=== PATIENT | female | born 1955 | race Caucasian/White ===

== ENCOUNTER 2017-11-11 20:44 | Outpatient (CLI) | payer MEDICAID | END 2017-11-11 20:45 | disposition critical access hospital (66) | LOC: EMS 20:44 | PROVIDERS: ATTEND Surgery | DX: R41.0 Disorientation, unspecified (principal); R10.9 Unspecified abdominal pain | CPT/HCPCS: A0425; A0427 ==

== ENCOUNTER 2017-11-11 21:17 | Emergency (ER) | payer MEDICAID ==
[2017-11-11 21:45] LABS: BASOPHILS # (AUTO) 0.2 10^3/uL (0.0-0.1); BASOPHILS % (AUTO) 0.8 %; HGB - HEMOGLOBIN 12.7 g/dL (12.0-16.0); LYMPHOCYTES % (AUTO) 7.6 %; MEAN CORPUSCULAR HEMOGLOBIN 33.1 pg (27.0-31.0); MEAN CORPUSCULAR HGB CONC 32.6 g/dL (32.0-36.0); MEAN CORPUSCULAR VOLUME 101.4 fL (81.0-99.0); MEAN PLATELET VOLUME 7.6 fL (7.9-10.8); MONOCYTES % (AUTO) 7.6 %; NEUTROPHILS # (AUTO) 21.6 10^3/uL (1.5-6.6); PLT - PLATELET COUNT 548 10^3/uL (130-450); RED BLOOD COUNT 3.85 10^6/uL (4.20-5.40); RED CELL DISTRIBUTION WIDTH 14.4 % (12.0-15.0); WHITE BLOOD COUNT 25.8 x10^3/uL (4.8-10.8)
--- NOTE | 2017-11-11 21:47 | ED Physician Documentation ---
PD HPI ABD PAIN - Stated complaint Stated Complaint: ABD PAIN, SOA, ASCITES - Chief complaint Chief Complaint: Abd Pain - History obtained from History obtained from: Patient, EMS - History of Present Illness Timing - onset: How many weeks ago (1) Timing - details: Gradual onset, Still present Quality: Cramping, Fullness/distended Location: All over / everywhere Worsened by: Eating, Breathing, Position Associated symptoms: Loss of appetite, Weight loss. No: Fever, Nausea, Vomiting Similar symptoms before: Has not had sx before Recently seen: Not recently seen - Additional information Additional information: Patient is a 62 year old female with no known significant past medical history who is presenting to the emergency department for abdominal pain and distention. according to patient and ems the symptoms have been going on for the last few weeks. Patient states that her abdomen has become more distended and now it is giving her trouble breathing. Patient denies any history of alcohol abuse or IVDA. Patient denies nausea, vomiting, fever or chills. Review of Systems Constitutional: denies: Fever, Chills Eyes: reports: Reviewed and negative Nose: reports: Reviewed and negative Throat: reports: Reviewed and negative Respiratory: reports: Dyspnea GI: reports: Abdominal Pain, Abdominal Swelling. 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 - Present Medications Home Medications: Ambulatory Orders Medication Instructions Recorded Confirmed Atenolol 0 mg PO DAILY 05/08/14 05/08/14 Carisoprodol [Soma] 0 mg PO QID 05/08/14 05/08/14 Clonidine HCl [Clonidine HCl ER] 0 mg PO BID 05/08/14 05/08/14 Penicillin Vk 500 mg PO Q6H 10 Days tablet 04/22/15 clonazePAM [Klonopin] 0.5 mg PO Q8H PRN #7 tablet 04/22/15 Carisoprodol [Soma] 250 mg PO QID 11/11/17 11/11/17 HYDROcod/ACETAM 5/325 [[place] 5/325] 1 - 2 tab PO PRN PRN 11/11/17 11/11/17 clonazePAM [Clonazepam] 0.5 mg PO Q8H 11/11/17 11/11/17 - Allergies Allergies/Adverse Reactions: Allergies Allergy/AdvReac Type Severity Reaction Status Date / Time adalimumab [From Humira] Allergy Intermediate Unknown Verified 11/11/17 22:55 Iodinated Contrast- Oral and Allergy Intermediate Unknown Verified 11/11/17 22: 55 IV Dye [Iodinated Contrast Media - IV Dye] tetracycline [Tetracycline] Allergy Intermediate Unknown Verified 11/11/17 22:55 - Social History Does the pt smoke?: Yes Smoking Status: Current every day smoker Does the pt drink ETOH?: Yes Does the pt have substance abuse?: No - Immunizations Immunizations are current?: No Immunizations: TDAP >10years/unknown - POLST Patient has POLST: No PD ED PE NORMAL - General General: Alert and oriented X 3 - HEENT HEENT: Atraumatic - Neck Neck: No JVD - Respiratory Respiratory: Clear bilaterally - Derm Derm: Normal color - Extremities Extremities: No deformity - Neuro Neuro: Alert and oriented X 3, No motor deficit Eye Opening: Spontaneous PD ED PE EXPANDED - General General: Alert, In Pain - HEENT HEENT: Dry mucous membranes, Dental decay - Cardiac Cardiac: Tachy - Abdomen Abdomen: Distended, Tender to palpation, Other (tympanic to percussion) Results - Vitals Vitals: Vital Signs - 24 hr 11/11/17 11/11/17 21:18 23:17 Temperature 36.1 C L Heart Rate 118 H 108 H Respiratory 22 16 Rate Blood Pressure 141/67 H 119/67 O2 Saturation 97 96 Oxygen O2 Source Room air - Labs Labs: Microbiology 11/11/17 22:45 Body Fluid Culture - Preliminary Ascities Fluid Laboratory Tests 11/11/17 11/11/17 11/11/17 21:39 21:39 21:39 WBC 25.8 H RBC 3.85 L Hgb 12.7 Hct 39.0 MCV 101.4 H MCH 33.1 H MCHC 32.6 RDW 14.4 Plt Count 548 H MPV 7.6 L Neut # 21.6 H Lymph # 2.0 [place] # 2.0 H Eos # 0.0 Baso # 0.2 H Absolute Nucleated RBC 0.01 Band Neuts % (Manual) Not Reportable Abnorm Lymph % (Manual) Not Reportable Nucleated RBC % 0.0 Neutrophils # (Manual) Not Reportable Lymphocytes # (Manual) Not Reportable Monocytes # (Manual) Not Reportable Eosinophils # (Manual) Not Reportable Basophils # (Manual) Not Reportable Differential Comment MANUAL=AUTO DIFF Manual Slide Review Indicated Platelet Estimate NORMAL (130-450,000) Platelet Morphology NORMAL APPEARANCE RBC Morph Micro Appear NORMAL APPEARANCE PT 14.3 H INR 1.3 H APTT 27.6 Sodium 127 L Potassium 3.2 L Chloride 89 L Carbon Dioxide 25 Anion Gap 13.0 BUN 6 Creatinine 0.5 Estimated GFR (MDRD) 125 Glucose 123 H Lactic Acid Calcium 8.4 L Total Bilirubin 1.7 H AST 174 H ALT 34 Alkaline Phosphatase 264 H Lactate Dehydrogenase B-Natriuretic Peptide Total Protein 6.7 Albumin 3.0 L Globulin 3.7 Albumin/Globulin Ratio 0.8 L Lipase 19 L Fluid Source Fluid Color Fluid Clarity Fluid WBC Fluid RBC Fluid Neutrophils % Fluid Lymphocytes % Fluid Macrophages % Fld Mesothelial Cell % 11/11/17 11/11/17 11/11/17 21:39 21:39 21:39 WBC RBC Hgb Hct MCV MCH MCHC RDW Plt Count MPV Neut # Lymph # [place] # Eos # Baso # Absolute Nucleated RBC Band Neuts % (Manual) Abnorm Lymph % (Manual) Nucleated RBC % Neutrophils # (Manual) Lymphocytes # (Manual) Monocytes # (Manual) Eosinophils # (Manual) Basophils # (Manual) Differential Comment Manual Slide Review Platelet Estimate Platelet Morphology RBC Morph Micro Appear PT INR APTT Sodium Potassium Chloride Carbon Dioxide Anion Gap BUN Creatinine Estimated GFR (MDRD) Glucose Lactic Acid 3.4 H* Calcium Total Bilirubin AST ALT Alkaline Phosphatase Lactate Dehydrogenase 188 B-Natriuretic Peptide 70 Total Protein Albumin Globulin Albumin/Globulin Ratio Lipase Fluid Source Fluid Color Fluid Clarity Fluid WBC Fluid RBC Fluid Neutrophils % Fluid Lymphocytes % Fluid Macrophages % Fld Mesothelial Cell % 11/11/17 22:45 WBC RBC Hgb Hct MCV MCH MCHC RDW Plt Count MPV Neut # Lymph # [place] # Eos # Baso # Absolute Nucleated RBC Band Neuts % (Manual) Abnorm Lymph % (Manual) Nucleated RBC % Neutrophils # (Manual) Lymphocytes # (Manual) Monocytes # (Manual) Eosinophils # (Manual) Basophils # (Manual) Differential Comment Manual Slide Review Platelet Estimate Platelet Morphology RBC Morph Micro Appear PT INR APTT Sodium Potassium Chloride Carbon Dioxide Anion Gap BUN Creatinine Estimated GFR (MDRD) Glucose Lactic Acid Calcium Total Bilirubin AST ALT Alkaline Phosphatase Lactate Dehydrogenase B-Natriuretic Peptide Total Protein Albumin Globulin Albumin/Globulin Ratio Lipase Fluid Source PERITONEAL Fluid Color YELLOW Fluid Clarity CLEAR Fluid WBC 139 Fluid RBC 316 Fluid Neutrophils % 13.0 Fluid Lymphocytes % 19.0 Fluid Macrophages % 50.0 Fld Mesothelial Cell % 18.0 - Rads (name of study) ct abdomen and pelvis Radiology: Final report received (large amount of ascites, infiltration of the liver), EMP read contemporaneously Procedures - Paracentesis Preparation: Consent obtained, Ultrasound guidance, Sterile prep and drape, Local anesthesia Location: RLQ Technique: Catheter over needle Fluid: Clear, Sent for cell count, Sent for gram stain, Sent for culture, Sent for albumin, Sent for glucose, Sent for protein, Sent for LDH, Sent for amylase , Volume - enter cc (1500), Sent for cytology Aftercare: No complications, Patient tolerated well, Dressing applied PD MEDICAL DECISION MAKING - ED course Complexity details: reviewed old records, reviewed results, re-evaluated patient , considered differential, d/w patient, d/w business solutions consultant ED course: patient was seen and examined at bedside. IV access was gained and labs were drawn. Imaging was ordered. When patient returned from imaging Patient was treated with morphine and ativan. paracentesis was performed. 1.5 liters were removed. Patient was found to have a leukocytosis and was empirically started on cefotaxime. There were no inpatient beds available in the hospital so case was discussed with [place] hospitalist Dr. Carlson who accepted the patient. Arrangements were made for transfer. Patient was treated with additional morphine for pain. Patient was transferred in stable condition. Departure - Departure Disposition: 02 Transfer Acute Care Hosp Clinical Impression: Ascites Condition: Stable
[2017-11-11 21:50] LABS: INR 1.3 (0.8-1.2); PT - PROTHROMBIN TIME 14.3 secs (9.9-12.6)
[2017-11-11] MEDS ORDERED: MORPHINE 10 MG/ML VIAL IVP STA ×2 (21:56→23:30)
[2017-11-11 21:57] LABS: ALBUMIN/GLOBULIN RATIO 0.8 (1.0-2.2); BILIRUBIN,TOTAL 1.7 mg/dL (0.2-1.0); CALCIUM 8.4 mg/dL (8.5-10.3); CREATININE 0.5 mg/dL (0.4-1.0); TOTAL PROTEIN 6.7 g/dL (6.7-8.2)
[2017-11-11 22:05] LABS: PLATELET ESTIMATE, MANUAL NORMAL (130-450,000) (NORMAL); PLATELET MORPHOLOGY NORMAL APPEARANCE (NORMAL); RBC MORPHOLOGY (MULTIPLE) NORMAL APPEARANCE (NORMAL)
[2017-11-11 22:06] LABS: DIFFERENTIAL COMMENT MANUAL=AUTO DIFF
[2017-11-11] MEDS ORDERED: SODIUM CHLORIDE 0.9% 1,000 ML IV ONE (22:08)
[2017-11-11] MEDS ORDERED: LORazepam 2 MG/ML VIAL IVP STA (22:08)
--- NOTE | 2017-11-11 22:35 | CT Preliminary Report ---
Exam: CT ABDOMEN/PELVIS W/O IMPRESSION: 1. Small bilateral pleural effusions and mild bibasilar lung consolidation suspect atelectasis. 2. There appears to be geographic fatty infiltration of the liver in the right hepatic lobe. Infiltra tive liver mass seems less likely but not excluded. An MRI of the liver could further evaluate. Mild lobular contour. 3. Moderate to large amount of ascites in the abdomen and pelvis. See above. [facility] SITE ID: [id number]
--- NOTE | 2017-11-11 22:42 | CT Report ---
EXAM: CT ABDOMEN AND PELVIS EXAM DATE: 11/11/2017 10:08 PM. CLINICAL HISTORY: Abdominal distention and weight loss. COMPARISONS: None. TECHNIQUE: Routine helical CT imaging was performed through the abdomen and pelvis. IV contrast: No. Enteric contrast: No. Reconstructions: Coronal and sagittal. In accordance with CT protocol optimization, one or more of the following dose reduction techniques w ere utilized for this exam: automated exposure control, adjustment of mA and/or KV based on patient s ize, or use of iterative reconstructive technique. FINDINGS: Lung Bases: Small bilateral pleural effusions and mild bibasilar lung consolidation, suspect atelecta sis. There appears to be geographic fatty infiltration of the liver in the right hepatic lobe. Infiltrativ e liver mass seems less likely but not excluded. An MRI of the liver could further evaluate. Mild lob ular contour. Gallbladder: The gallbladder evaluation is limited since the adjacent ascites obscures the wall of th e gallbladder. Bile Ducts: Unremarkable. Pancreas: Unremarkable. Spleen: Unremarkable. Adrenals: Unremarkable. Kidneys: Unremarkable. Bowel: Small hiatal hernia. No evidence for bowel obstruction. Moderate to large amount of ascites in the abdomen and pelvis. Pelvis: Bladder is decompressed. Uterus is atrophic. Vascular Structures: No acute findings. Bones: No acute bone findings. Moderate dextroscoliosis in the lower thoracic spine and moderate levoscoliosis in the lumbar spine. Hardware in the right proximal femur. IMPRESSION: 1. Small bilateral pleural effusions and mild bibasilar lung consolidation suspect atelectasis. 2. There appears to be geographic fatty infiltration of the liver in the right hepatic lobe. Infiltra tive liver mass seems less likely but not excluded. An MRI of the liver could further evaluate. Mild lobular contour. 3. Moderate to large amount of ascites in the abdomen and pelvis. See above. [facility] Referring Provider Line: [phone] SITE ID: [id number]
[2017-11-11] MEDS ORDERED: CEFOTAXIME 2 GM in SODIUM CHLORIDE 0.9% MINIBAG 100 ML IV STA (22:48)
[2017-11-11 23:07] LABS: BF COLOR YELLOW; BF SOURCE PERITONEAL; CC,BF RBC 316 /mm^3
[2017-11-11] MEDS ORDERED: CEFOTAXIME 1 GM VIAL ONE (23:11)
[2017-11-11 23:18] VITALS: BP 119/67
[2017-11-12] LABS: GLUCOSE, URINE (UA) NEGATIVE (NEGATIVE); KETONES,URINE (UA) TRACE mg/dL (NEGATIVE); LEUKOCYTE ESTERASE, URINE NEGATIVE (NEGATIVE); NITRITE,URINE NEGATIVE (NEGATIVE); OCCULT BLOOD,URINE NEGATIVE (NEGATIVE); PH,URINE 5.5 PH (5.0-7.5); PROTEIN,URINE TRACE mg/dL (NEGATIVE); UROBILINOGEN,URINE 1 (NORMAL) E.U./dL (NORMAL)
[2017-11-12 00:01] LABS: BILIRUBIN,URINE NEGATIVE (NEGATIVE); CLARITY,URINE N (CLEAR); ICTOTEST,URINE NEGATIVE
== END 2017-11-12 | disposition short-term general hospital (02) ==
LOC: EDUNIT# → ED 21:17
DX: R18.8 Other ascites (principal); D72.829 Elevated white blood cell count, unspecified; I10 Essential (primary) hypertension; M79.7 Fibromyalgia; M19.90 Unspecified osteoarthritis, unspecified site; F17.200 Nicotine dependence, unspecified, uncomplicated
CPT/HCPCS: 36415; 49082; 74176; 80053; 80074; 81003; 81599; 83605; 83615; 83690; 83880; 85025; 85610; 85730; 87070; 87205; 89051; 96361; 96374; 96375; 96376; 99284; J2060; 81001; 82042; 82150; 82945; 84157; 87086; 99283

== ENCOUNTER 2017-11-11 23:59 | Outpatient (CLI) | payer MEDICAID | END 2017-11-12 | disposition short-term general hospital (02) | LOC: EMS 23:59 | PROVIDERS: ATTEND Surgery | DX: R10.9 Unspecified abdominal pain (principal); R18.8 Other ascites | CPT/HCPCS: A0170; A0425; A0426 ==

== ENCOUNTER 2017-11-26 19:08 | Outpatient (CLI) | payer MEDICAID | END 2017-11-26 19:09 | disposition critical access hospital (66) | LOC: EMS 19:08 | PROVIDERS: ATTEND Surgery | DX: R10.9 Unspecified abdominal pain (principal); R11.0 Nausea | CPT/HCPCS: A0425; A0427 ==

== ENCOUNTER 2017-11-26 19:40 | Emergency (ER) | payer MEDICAID ==
--- NOTE | 2017-11-26 21:01 | CT Report ---
EXAM: CT ABDOMEN AND PELVIS EXAM DATE: 11/26/2017 08:46 PM. CLINICAL HISTORY: Abd pain and distention. COMPARISONS: 11/11/2017. TECHNIQUE: Routine helical CT imaging was performed through the abdomen and pelvis. IV contrast: No. Enteric contrast: No. Reconstructions: Coronal and sagittal. In accordance with CT protocol optimization, one or more of the following dose reduction techniques w ere utilized for this exam: automated exposure control, adjustment of mA and/or KV based on patient s ize, or use of iterative reconstructive technique. FINDINGS: Lung Bases: There is a small right pleural effusion which appears increased in size. There is bibasil ar dependent atelectasis. Liver: The capsule of the liver has a lobulated contour. Gallbladder/Bile Ducts: No calcified gallstones. Spleen: Normal in size. Pancreas: Normal in contour. Adrenal Glands: Normal. Kidneys: No kidney stones or hydronephrosis. Peritoneal Cavity/Bowel: The bowel is normal in caliber. No pneumatosis or free air. There is omental nodularity in the anterior lower abdomen. There is a moderate volume of free fluid within all 4 quad rants of the abdomen and within the pelvis. Pelvic Organs: Urinary bladder not seen. Uterus is small in size. Vasculature: There is moderate calcification of the distal abdominal aorta. No aneurysm present. Bones: There is S-shaped scoliotic curvature of the spine. There is a compression fracture of L1 whic h appears unchanged. Other: None. IMPRESSION: 1. Small right pleural effusion is increased. 2. Moderate volume of ascites fluid is without significant change. Omental nodularity is present. Thi s is a nonspecific finding but raises the possibility of carcinomatosis. 3. Lobulated liver consistent with chronic liver disease. [facility] Referring Provider Line: [phone] SITE ID: [id number]
[2017-11-26 21:08] LABS: BASOPHILS # (AUTO) 0.1 10^3/uL (0.0-0.1); BASOPHILS % (AUTO) 0.8 %; EOSINOPHILS % (AUTO) 0.1 %; LYMPHOCYTES # (AUTO) 2.2 10^3/uL (1.5-3.5); LYMPHOCYTES % (AUTO) 13.1 %; MEAN CORPUSCULAR HGB CONC 35.1 g/dL (32.0-36.0); MEAN CORPUSCULAR VOLUME 99.6 fL (81.0-99.0); MEAN PLATELET VOLUME 7.5 fL (7.9-10.8); MONOCYTES # (AUTO) 1.4 10^3/uL (0.0-1.0); MONOCYTES % (AUTO) 8.1 %; NEUTROPHILS # (AUTO) 13.4 10^3/uL (1.5-6.6); NEUTROPHILS % (AUTO) 77.9 %; PLT - PLATELET COUNT 418 10^3/uL (130-450); RED BLOOD COUNT 3.15 10^6/uL (4.20-5.40); RED CELL DISTRIBUTION WIDTH 14.7 % (12.0-15.0); WHITE BLOOD COUNT 17.2 x10^3/uL (4.8-10.8)
[2017-11-26 21:13] LABS: INR 1.4 (0.8-1.2); PT - PROTHROMBIN TIME 15.3 secs (9.9-12.6)
[2017-11-26 21:18] LABS: ALBUMIN 2.5 g/dL (3.2-5.5); ALBUMIN/GLOBULIN RATIO 0.7 (1.0-2.2); BILIRUBIN,TOTAL 1.5 mg/dL (0.2-1.0); CALCIUM 7.9 mg/dL (8.5-10.3); CREATININE 0.6 mg/dL (0.4-1.0); MAGNESIUM 1.7 mg/dL (1.7-2.8); PHOSPHORUS 3.6 mg/dL (2.5-4.6); TOTAL PROTEIN 6.1 g/dL (6.7-8.2)
--- NOTE | 2017-11-26 21:46 | ED Physician Documentation ---
PD HPI ABD PAIN - Stated complaint Stated Complaint: NAUSEA/PAIN - Chief complaint Chief Complaint: Abd Pain - History obtained from History obtained from: Family - History of Present Illness Timing - onset: Chronic Timing - details: Gradual onset, Still present Quality: Cramping, Aching Location: All over / everywhere Associated symptoms: Nausea. No: Fever, Diarrhea, Constipation Similar symptoms before: Work up / diagnostics, Treatment Recently seen: Emergency Dept, Admitted - Additional information Additional information: Patient is a 62 year old female who is presenting to the emergency department for abdominal pain. Patient was seen here about 2 weeks ago. At that time she was diagnosed with peritonitis and transferred. Patient was inpatient at [facility] and has been home for the last 4 days. Patient states that she still has pain in her belly and occasional nausea. Review of Systems Constitutional: denies: Fever, Chills GI: reports: Abdominal Pain, Abdominal Swelling, Nausea. 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 - Present Medications Home Medications: Ambulatory Orders Medication Instructions Recorded Confirmed Furosemide 40 mg PO DAILY 11/26/17 Ondansetron Odt [Zofran] 4 mg TL Q6H PRN #14 tablet 11/26/17 Potassium Chloride 40 meq PO DAILY 11/26/17 Spironolactone 25 mg PO DAILY 11/26/17 hydrOXYzine pamoate [Hydroxyzine 25 mg PO PRN PRN 11/26/17 Pamoate] oxyCODONE ER [OxyCONTIN] 10 mg PO Q12H #6 tablet 11/26/17 - Allergies Allergies/Adverse Reactions: Allergies Allergy/AdvReac Type Severity Reaction Status Date / Time adalimumab [From Humira] Allergy Intermediate Unknown Verified 11/26/17 19:51 Iodinated Contrast- Oral and Allergy Intermediate Unknown Verified 11/26/17 19: 51 IV Dye [Iodinated Contrast Media - IV Dye] tetracycline [Tetracycline] Allergy Intermediate Unknown Verified 11/26/17 19:51 - Social History Does the pt smoke?: Yes Smoking Status: Current every day smoker Does the pt drink ETOH?: Yes Does the pt have substance abuse?: No - Immunizations Immunizations are current?: No Immunizations: TDAP >10years/unknown - POLST Patient has POLST: No PD ED PE NORMAL - Vitals Vital signs reviewed: Yes - General General: Alert and oriented X 3 - HEENT HEENT: Atraumatic - Cardiac Cardiac: RRR - Respiratory Respiratory: No respiratory distress PD ED PE EXPANDED - HEENT HEENT: Dry mucous membranes - Abdomen Abdomen: Tender to palpation, Generalized/diffuse, Hepatomegaly. No: Rebound, Guarding Results - Vitals Vitals: Vital Signs - 24 hr 11/26/17 11/26/17 11/26/17 19:40 20:20 21:25 Temperature 36.1 C L Heart Rate 100 99 100 Respiratory 18 17 16 Rate Blood Pressure 117/98 H 111/62 116/67 O2 Saturation 96 97 95 11/26/17 23:54 Temperature Heart Rate 93 Respiratory 16 Rate Blood Pressure 111/62 O2 Saturation 95 Oxygen O2 Source Room air - Labs Labs: Laboratory Tests 11/26/17 11/26/17 11/26/17 20:54 20:54 20:54 WBC 17.2 H RBC 3.15 L Hgb 11.0 L Hct 31.3 L MCV 99.6 H MCH 35.0 H MCHC 35.1 RDW 14.7 Plt Count 418 MPV 7.5 L Neut # 13.4 H Lymph # 2.2 [place] # 1.4 H Eos # 0.0 Baso # 0.1 Absolute Nucleated RBC 0.01 Nucleated RBC % 0.1 PT 15.3 H INR 1.4 H APTT 29.7 Sodium 130 L Potassium 3.4 L Chloride 96 L Carbon Dioxide 26 Anion Gap 8.0 BUN 7 Creatinine 0.6 Estimated GFR (MDRD) 102 Glucose 109 H Lactic Acid Calcium 7.9 L Phosphorus 3.6 Magnesium 1.7 Total Bilirubin 1.5 H AST 162 H ALT 27 Alkaline Phosphatase 164 H B-Natriuretic Peptide Total Protein 6.1 L Albumin 2.5 L Globulin 3.6 Albumin/Globulin Ratio 0.7 L Lipase 22 11/26/17 11/26/17 20:54 20:54 WBC RBC Hgb Hct MCV MCH MCHC RDW Plt Count MPV Neut # Lymph # [place] # Eos # Baso # Absolute Nucleated RBC Nucleated RBC % PT INR APTT Sodium Potassium Chloride Carbon Dioxide Anion Gap BUN Creatinine Estimated GFR (MDRD) Glucose Lactic Acid 0.9 Calcium Phosphorus Magnesium Total Bilirubin AST ALT Alkaline Phosphatase B-Natriuretic Peptide 87 Total Protein Albumin Globulin Albumin/Globulin Ratio Lipase - Rads (name of study) ct abd pelvis Radiology: Final report received (stable ascites, liver cirrhosi) PD MEDICAL DECISION MAKING - ED course Complexity details: reviewed old records, reviewed results, re-evaluated patient , considered differential, d/w patient ED course: Patient was seen and examined at bedside. IV access was gained and labs were drawn. patient was started on a fluid bolus. Imaging was ordered. patient was treated with toradol and zofran. Patient went for imaging. when patient returned from imaging her results were reviewed and compared to previous visits. Although patient was not a well person most of her diagnostics were improving. patient had nursing visit set up, as well as home food delivery. Patient did not require inpatient admission at this time and was stable for discharge with outpatient follow up. Departure - Departure Disposition: Home, Self Care Clinical Impression: Abdominal pain, Ascites Instructions: ED Ascites Follow-Up: Jae Valiente MD [Primary Care Provider] - Prescriptions: Ondansetron Odt [Zofran] 4 mg TL Q6H PRN #14 tablet PRN Reason: Nausea / Vomiting oxyCODONE ER [OxyCONTIN] 10 mg PO Q12H #6 tablet Comments: Your diagnostics today look slightly improved from last time. You should continue with your medications and your follow up appointments. You have been prescribed a few days of pain medication, and nausea medication but it is important to follow up with your doctor on wednesday. Discharge Date/Time: 11/27/17 03:03
[2017-11-26] MEDS ORDERED: ONDANSETRON 4 MG/2 ML VIAL IVP STA (22:00)
[2017-11-26] MEDS ORDERED: KETOROLAC 60 MG/2 ML VIAL IVP STA (22:00)
[2017-11-26 23:54] VITALS: BP 111/62
[2017-11-27] MEDS ORDERED: ONDANSETRON 4 MG/2 ML VIAL IVP STA (01:46)
[2017-11-27] MEDS ORDERED: ONDANSETRON ODT 4 MG Prepack 2 TL PRN (02:06)
[2017-11-27] MEDS ORDERED: oxyCODONE/ACET 5/325 Prepack 4 PO STA (02:06)
== END 2017-11-27 03:03 | disposition home or self-care (01) ==
LOC: EDUNIT# → ED 19:40
DX: K74.60 Unspecified cirrhosis of liver (principal); R18.8 Other ascites; I10 Essential (primary) hypertension; F17.200 Nicotine dependence, unspecified, uncomplicated
CPT/HCPCS: 36415; 74176; 80053; 83605; 83690; 83735; 83880; 84100; 85025; 85610; 85730; 96374; 96375; 96376; 99284

== ENCOUNTER 2017-12-10 19:10 | Emergency (ER) | payer MEDICAID ==
[2017-12-10 20:03] LABS: BASOPHILS # (AUTO) 0.1 10^3/uL (0.0-0.1); BASOPHILS % (AUTO) 1.2 %; EOSINOPHILS # (AUTO) 0.1 10^3/uL (0.0-0.7); EOSINOPHILS % (AUTO) 0.4 %; HGB - HEMOGLOBIN 12.2 g/dL (12.0-16.0); LYMPHOCYTES # (AUTO) 1.5 10^3/uL (1.5-3.5); LYMPHOCYTES % (AUTO) 13.1 %; MEAN CORPUSCULAR HEMOGLOBIN 33.3 pg (27.0-31.0); MEAN CORPUSCULAR HGB CONC 33.4 g/dL (32.0-36.0); MEAN CORPUSCULAR VOLUME 99.7 fL (81.0-99.0); MEAN PLATELET VOLUME 7.1 fL (7.9-10.8); MONOCYTES # (AUTO) 1.1 10^3/uL (0.0-1.0); MONOCYTES % (AUTO) 9.2 %; NEUTROPHILS % (AUTO) 76.1 %; PLT - PLATELET COUNT 409 10^3/uL (130-450); RED BLOOD COUNT 3.65 10^6/uL (4.20-5.40); RED CELL DISTRIBUTION WIDTH 14.2 % (12.0-15.0); WHITE BLOOD COUNT 11.8 x10^3/uL (4.8-10.8)
[2017-12-10 20:09] LABS: INR 1.4 (0.8-1.2)
--- NOTE | 2017-12-10 20:15 | ED Physician Documentation ---
History of Present Illness - Stated complaint Stated Complaint: ABD INFECTION - Chief complaint Chief Complaint: Abd Pain - History obtained from History obtained from: Patient - History of Present Illness Timing: Chronic Pain level max: 8 Pain level now: 6 Improved by: nothing Worsened by: nothing - Additonal information Additional information: Patient is a 62-year-old female with with a history of ascites who presents to the emergency department today stating that she has had increasing pain over the past several days. States that she saw her doctor and "there was something on her labs". She does not know anything further than this. She denies any fevers. States has occasional nausea. No vomiting. No changes in her medications. She states she is always mildly short of breath but no worse today than usual. She was admitted to [facility] in [place] approximately 1 month ago for possible bacterial peritonitis, though cultures were negative. She did have an elevated white blood cell count at that time and it has been steadily trending downward since that time. She does not know her home medications. Review of Systems Ten Systems: 10 systems reviewed and negative Constitutional: denies: Fever, Chills Ears: denies: Ear pain Nose: denies: Rhinorrhea / runny nose, Congestion Throat: denies: Sore throat Cardiac: denies: Chest pain / pressure Respiratory: reports: Dyspnea (Chronic and unchanged) GI: reports: Abdominal Pain (Chronic and unchanged). denies: Nausea, Vomiting, Diarrhea, Hematemesis, Bloody / black stool : denies: Dysuria Skin: denies: Rash Musculoskeletal: denies: Neck pain, Back pain Neurologic: denies: Headache PD PAST MEDICAL HISTORY - Past Medical History Past Medical History: Yes Cardiovascular: Hypertension Respiratory: None Neuro: None Endocrine/Autoimmune: None GI: Pancreatitis FEATHER SHAPER: None : None HEENT: None Psych: Anxiety Musculoskeletal: Scoliosis, Osteoarthritis, Fibromyalgia Derm: None - Past Surgical History Past Surgical History: Yes General: Hiatal hernia repair /FEATHER SHAPER: Other - Present Medications Home Medications: Ambulatory Orders Medication Instructions Recorded Confirmed Furosemide 40 mg PO DAILY 11/26/17 12/10/17 Ondansetron Odt [Zofran] 4 mg TL Q6H PRN #14 tablet 11/26/17 12/10/17 Potassium Chloride 20 meq PO DAILY 11/26/17 12/10/17 Spironolactone 25 mg PO DAILY 11/26/17 12/10/17 hydrOXYzine pamoate [Hydroxyzine 25 mg PO PRN PRN 11/26/17 12/10/17 Pamoate] oxyCODONE ER [OxyCONTIN] 10 mg PO Q12H #6 tablet 11/26/17 12/10/17 Furosemide [Lasix] 40 mg PO BID #20 tablet 12/10/17 Spironolactone 50 mg PO DAILY #30 tablet 12/10/17 - Allergies Allergies/Adverse Reactions: Allergies Allergy/AdvReac Type Severity Reaction Status Date / Time adalimumab [From Humira] Allergy Intermediate Unknown Verified 11/26/17 19:51 Iodinated Contrast- Oral and Allergy Intermediate Unknown Verified 11/26/17 19: 51 IV Dye [Iodinated Contrast Media - IV Dye] tetracycline [Tetracycline] Allergy Intermediate Unknown Verified 11/26/17 19:51 - Social History Does the pt smoke?: Yes Smoking Status: Current every day smoker Does the pt drink ETOH?: Yes Does the pt have substance abuse?: No - Immunizations Immunizations are current?: No Immunizations: TDAP >10years/unknown - POLST Patient has POLST: No PD ED PE NORMAL - Vitals Vital signs reviewed: Yes - General General: Alert and oriented X 3, No acute distress - HEENT HEENT: Moist mucous membranes - Neck Neck: Supple, no meningeal sign - Cardiac Cardiac: RRR - Respiratory Respiratory: No respiratory distress, Clear bilaterally - Abdomen Abdomen: Other (Distended abdomen, firm. Positive fluid shift. Minimal tenderness) - Derm Derm: Warm and dry - Neuro Neuro: Alert and oriented X 3 - Psych Psych: Normal mood, Normal affect Results - Vitals Vitals: Vital Signs - 24 hr 12/10/17 12/10/17 12/10/17 19:17 19:55 21:29 Temperature 36.3 C L Heart Rate 117 H 75 77 Respiratory 18 24 16 Rate Blood Pressure 120/65 126/64 117/70 O2 Saturation 98 95 95 Oxygen O2 Source Room air - Labs Labs: Laboratory Tests 12/10/17 12/10/17 12/10/17 19:50 19:50 19:50 WBC 11.8 H RBC 3.65 L Hgb 12.2 Hct 36.4 L MCV 99.7 H MCH 33.3 H MCHC 33.4 RDW 14.2 Plt Count 409 MPV 7.1 L Neut # (Auto) 9.0 H Lymph # (Auto) 1.5 Coffey # (Auto) 1.1 H Eos # (Auto) 0.1 Baso # (Auto) 0.1 Absolute Nucleated RBC 0.00 Nucleated RBC % 0.0 PT 16.0 H INR 1.4 H Sodium 130 L Potassium 4.2 Chloride 94 L Carbon Dioxide 27 Anion Gap 9.0 BUN 11 Creatinine 0.8 Estimated GFR (MDRD) 73 L Glucose 126 H Calcium 8.8 Total Bilirubin 1.8 H AST 89 H ALT 21 Alkaline Phosphatase 155 H Total Protein 7.2 Albumin 2.7 L Globulin 4.5 H Albumin/Globulin Ratio 0.6 L Lipase 34 PD MEDICAL DECISION MAKING - ED course Complexity details: reviewed old records, reviewed results, re-evaluated patient , considered differential, d/w patient, d/w PMD ED course: Patient is a 62-year-old female with what sounds like alcoholic cirrhosis leading to ascites. No evidence of SBP. No fevers. No changes in her pain. No changes in her dyspnea. She is not dyspneic in the emergency department and is actually ambulating quite well. No hypoxia. No respiratory distress. Lungs are clear to auscultation bilaterally. I was able to speak with the on- call physician, Dr. Devine for her primary who was able to send me a medication list for the patient. She is on low doses of Lasix and Spironolactone, will increase these. Will have her follow-up closely with her doctor for further evaluation and care. If it is deemed that she needs a nonemergent paracentesis , this can be scheduled with radiology. Patient counseled regarding signs and symptoms for which I believe and urgent re-evaluation would be necessary. Patient with good understanding of and agreement to plan and is comfortable going home at this time This document was made in part using voice recognition software. While efforts are made to proofread this document, sound alike and grammatical errors may occur. After the patient left the department, I did speak with her primary care provider and stated that she was unsure how to obtain an outpatient paracentesis for this patient so sent her to the ER. We did discuss how this could be performed and that we will change her medications as previously discussed. - Sepsis Event Vital Signs: Vital Signs - 24 hr 12/10/17 12/10/17 12/10/17 19:17 19:55 21:29 Temperature 36.3 C L Heart Rate 117 H 75 77 Respiratory 18 24 16 Rate Blood Pressure 120/65 126/64 117/70 O2 Saturation 98 95 95 Oxygen O2 Source Room air Departure - Departure Disposition: 01 Home, Self Care Clinical Impression: Ascites Qualifiers: Ascites type: due to alcoholic cirrhosis Qualified Code(s): K70.31 - Alcoholic cirrhosis of liver with ascites Condition: Good Instructions: ED Ascites Follow-Up: Jae Valiente MD [Primary Care Provider] - Within 1 week Prescriptions: Furosemide [Lasix] 40 mg PO BID #20 tablet Spironolactone 50 mg PO DAILY #30 tablet Comments: We are going to increase your diuretics for home. You can follow up with your doctor next week to determine if they would like you to have a paracentesis with radiology scheduled. Discharge Date/Time: 12/10/17 21:29
[2017-12-10 20:17] LABS: ALBUMIN 2.7 g/dL (3.2-5.5); ALBUMIN/GLOBULIN RATIO 0.6 (1.0-2.2); BILIRUBIN,TOTAL 1.8 mg/dL (0.2-1.0); CALCIUM 8.8 mg/dL (8.5-10.3); CREATININE 0.8 mg/dL (0.4-1.0); TOTAL PROTEIN 7.2 g/dL (6.7-8.2)
[2017-12-10] MEDS ORDERED: FUROSEMIDE 20 MG TABLET PO STA (20:25)
[2017-12-10] MEDS ORDERED: SPIRONOLACTONE 25 MG TABLET PO STA (20:25)
[2017-12-10 21:30] VITALS: BP 117/70
== END 2017-12-10 21:29 | disposition home or self-care (01) ==
LOC: ED 19:10
DX: K70.31 Alcoholic cirrhosis of liver with ascites (principal); I10 Essential (primary) hypertension; M79.7 Fibromyalgia; M19.90 Unspecified osteoarthritis, unspecified site; F17.200 Nicotine dependence, unspecified, uncomplicated
CPT/HCPCS: 36415; 80053; 83690; 85025; 85610; 99283; A9270

== ENCOUNTER 2017-12-15 13:23 | Outpatient (CLI) | payer MEDICAID | END 2017-12-15 13:24 | disposition short-term general hospital (02) | LOC: EMS 13:23 | PROVIDERS: ATTEND Surgery | DX: R10.9 Unspecified abdominal pain (principal); R11.2 Nausea with vomiting, unspecified | CPT/HCPCS: A0170; A0425; A0427 ==

== ENCOUNTER 2018-01-05 13:05 | Outpatient (CLI) | payer MEDICAID | END 2018-01-05 13:06 | disposition short-term general hospital (02) | LOC: EMS 13:05 | PROVIDERS: ATTEND Surgery | DX: R19.00 Intra-abdominal and pelvic swelling, mass and lump, unspecified site (principal); R06.00 Dyspnea, unspecified; R53.81 Other malaise | CPT/HCPCS: A0170; A0425; A0427; A0999 ==